=== PATIENT | female | born 1975 | race Caucasian/White ===

== ENCOUNTER → 2016-07-17 | Outpatient (CLI) | payer MEDICARE ==
[~2016-07-17] MED LIST: ACET-1101 PO; ALBU1AER9 INH; B-CO1CAP17 PO; BND25X PO; BUPR75TA20 PO; CLON0.5T3 PO; CLR10 PO; DIAZ-165 PO; DIPH25CA37 PO; ESCI1TAB10 PO; FLUT0.15; KLN5X PO; LEVO-14 PO; LINA1CAP PO; MAGN400T6 PO; OMEP20TA PO; ONDA8TAB6 PO; PANC6000 PO; PROM1SUP19 PR; QUET1TAB30 PO; TRAM-10 PO; TRAZ50TA35 PO; VNTHFA/IN INH
--- NOTE | 2016-07-17 13:47 | EXERCISE STRESS ECHO ---
*NOTICE TO RECEIVING CONSTITUTION PARTY AGENCY This information is strictly Confidential and protected under [place] law. [place] law prohibits you from making any further disclosure of this information unless further disclosure is expressly permitted by the written consent of the person to whom it pertains or is authorized by law. A general authorization for the release of medical or other information is not sufficient for this purpose. Hospital accepts no responsibility if the information is made available to any other person, INCLUDING THE PATIENT. Interpretation Summary * Name: JEAN MARIE FRANCO Study Date: 07/17/2016 09:45 AM BP: 130/88 mmHg * Patient Location: [facility] HR: 96 * : 1975 (M/d/yyyy) Gender: Female Height: 68 in * Age: 41 yrs Ethnicity: [place] Weight: 190 lb * Ordering Physician: Elisabeth Starks * Referring Physician: Elisabeth Starks PA-C * Performed By: Ludmila Fernández RCS * * Reason For Study: SOB, Chest Discomfort * BSA: 2.0 m2 * -- Conclusions -- * Stress Echo: * 1. Negative stress echo for ischemia at 96% MPHR. * 2. Negative exercise ECG for ischemia at 96% MPHR. * 3. No chest pain. * 4. Appropriate blood pressure response to exercise. * 5. No arrhythmia. * 6. Fair exercise tolerance. * ECHO: * 1. Normal left ventricular size and systolic function. EF 55-60%. No regional wall motion abnormalities. No left ventricular hypertrophy. Type 1 diastolic dysfunction. * 2. No significant valvular abnormalities visualized. Procedure Details * ECHOEX, CPT #[id number] * ECHO COLOR FLOW, CPT #[id number] * ECHO DOPPLER, CPT #[id number] Left Ventricle * The left ventricle is normal in size. * Echo images following exercise or personally visualized while acquiring the images. Unfortunately, the early images did not save in the system, however all wall segments appeared to augment appropriately with hyperdynamic LV systolic function. Images were then retaken and are available for review. * There is normal left ventricular wall thickness. * Ejection Fraction = 55-60%. * Left ventricular systolic function is normal. * Resting wall motion: Normal. Stress wall motion: Appropriate increase in Left ventricular systolic function and decrease in cavity size. No stress induced segmental wall motion abnormalities. * The left ventricular ejection fraction increases normally with stress. The left ventricular end-systolic cavity size reduces post-stress (normal response). The left ventricular wall motion with stress is normal. Right Ventricle * The right ventricle is normal in size and function. * The right ventricular systolic function is normal as assessed by tricuspid annular plane systolic excursion (TAPSE) (normal >1.5 cm). Atria * The left atrial size is normal. * Right atrial size is normal. * There is no evidence of atrial septal defect, but resolution does not allow assessment for a patent foramen ovale. Mitral Valve * The mitral valve is normal in structure and function. * There is no mitral valve stenosis. * There is trace mitral regurgitation. Tricuspid Valve * The tricuspid valve is not well visualized, but is grossly normal. * There is no tricuspid stenosis. * Significant tricuspid regurgitation is absent. Aortic Valve * The aortic valve is normal in structure and function. * The aortic valve is trileaflet. * No hemodynamically significant valvular aortic stenosis. * No aortic regurgitation is present. Pulmonic Valve * The pulmonary valve is inadequately visualized, but the Doppler data is adequate for interpretation. * There is no significant pulmonary regurgitation. Great Vessels * The aortic root is normal size. * Normal IVC size and inspiratory collapse. Pericardium * There is no pericardial effusion. Stress Parameters * NSR at 96 bpm. * Stress ECG: No ST changes. No arrhythmias. * No arrhythmia were noted with stress. * The stress portion of this study was personally supervised by the undersigned interpreting physician. * Rest heart rate was '96' BPM. * Rest blood pressure was '130/88' * Maximum heart rate achieved was 171 bpm. * Maximum heart rate was 96 % of maximum age-predicted heart rate. * Maximum blood pressure was '168/97' * Total exercise time was '6:56' * Maximum exercise MET level achieved was '8.4' METS * Maximum treadmill speed was '3.4' miles per hour. * Maximum treadmill elevation was '14'% grade. * Exercise was terminated due to 'fatigue after achieving target heart rate' * Normal blood pressure response to exercise. Left Ventricular Diastolic Function * Grade I diastolic dysfunction, (abnormal relaxation pattern). MMode 2D Measurements and Calculations IVSd 0.92 cm IVSs 1.2 cm LVIDd 4.9 cm LVIDs 3.1 cm LVPWd 1.0 cm LVPWs 1.2 cm IVS/LVPW 0.89 FS 37.9 % EDV(Teich) 113.6 ml ESV(Teich) 36.6 ml EF(Teich) 67.8 % EDV(cubed) 118.7 ml ESV(cubed) 28.5 ml EF(cubed) 76.0 % % IVS thick 29.2 % % LVPW thick 19.8 % LV mass(C)d 172.6 grams LV mass(C)dI 86.3 grams/m\S\2 LV mass(C)s 114.8 grams LV mass(C)sI 57.4 grams/m\S\2 CO(Teich) 6.6 l/min CI(Teich) 3.3 l/min/m\S\2 SV(Teich) 77.0 ml SI(Teich) 38.5 ml/m\S\2 CO(cubed) 7.8 l/min CI(cubed) 3.9 l/min/m\S\2 SV(cubed) 90.2 ml SI(cubed) 45.1 ml/m\S\2 Ao root diam 3.5 cm Ao root area 9.6 cm\S\2 ACS 1.9 cm LA dimension 3.4 cm LA/Ao 0.97 LVOT diam 2.2 cm LVOT area 3.6 cm\S\2 LVAd ap4 30.9 cm\S\2 LVLd ap4 8.1 cm EDV(MOD-sp4) 100.0 ml EDV(sp4-el) 77.5 ml LVAs ap4 17.3 cm\S\2 LVLs ap4 7.3 cm ESV(MOD-sp4) 34.0 ml ESV(sp4-el) 28.2 ml EF(MOD-sp4) 66.0 % EF(sp4-el) 63.5 % LVAd ap2 29.4 cm\S\2 LVLd ap2 8.8 cm EDV(MOD-sp2) 82.0 ml LVAs ap2 17.6 cm\S\2 LVLs ap2 7.3 cm ESV(MOD-sp2) 35.0 ml EF(MOD-sp2) 57.3 % CO(MOD-sp4) 5.7 l/min CI(MOD-sp4) 2.8 l/min/m\S\2 SV(MOD-sp4) 66.0 ml SI(MOD-sp4) 33.0 ml/m\S\2 CO(MOD-sp2) 4.0 l/min CI(MOD-sp2) 2.0 l/min/m\S\2 SV(MOD-sp2) 47.0 ml SI(MOD-sp2) 23.5 ml/m\S\2 CO(sp4-el) 4.2 l/min CI(sp4-el) 2.1 l/min/m\S\2 SV(sp4-el) 49.2 ml SI(sp4-el) 24.6 ml/m\S\2 Doppler Measurements and Calculations MV E max bran 55.9 cm/sec MV A max bran 70.6 cm/sec MV E/A 0.79 MV P1/2t max bran 64.3 cm/sec MV P1/2t 85.7 msec MVA(P1/2t) 2.6 cm\S\2 MV dec slope 219.6 cm/sec\S\2 MV dec time 0.17 sec Ao V2 max 112.5 cm/sec Ao max PG 5.1 mmHg Ao max PG (full) 2.9 mmHg MARIANELA(V,A) 2.4 cm\S\2 MARIANELA(V,D) 2.4 cm\S\2 LV V1 max PG 2.1 mmHg LV V1 max 73.0 cm/sec PA V2 max 77.3 cm/sec PA max PG 2.4 mmHg RAP systole 3.0 mmHg
== END | disposition home or self-care (01) ==
LOC: C.CPL 09:19
PROVIDERS: ATTEND Internal Medicine Pulmonary Disease
DX: R06.02 Shortness of breath (principal)

== ENCOUNTER 2017-03-05 12:34 | Emergency (ER) | payer MEDICARE ==
[~2017-03-05] VITALS: Ht 172.7 cm; Wt 90.4 kg
[~2017-03-05 12:34] MED LIST changes: -ACET-1101 PO; -BND25X PO; -CLON0.5T3 PO; -KLN5X PO; -PROM1SUP19 PR; -QUET1TAB30 PO; -VNTHFA/IN INH
[2017-03-05 12:50] VITALS: TEMP 36.9; Ht 172.7 cm; Wt 90.4 kg
[2017-03-05] MEDS ORDERED: IBUPROFEN 200 MG TAB PO STA (13:42)
[2017-03-05] MEDS ORDERED: ACETAMINOPHEN 500 MG TAB PO STA (13:42)
[2017-03-05] MEDS ORDERED: SODIUM CHLORIDE 0.9% 1000ML 1,000 ML IV STA ×3 (13:42→15:21)
[2017-03-05] MEDS ORDERED: MAGNESIUM SULFATE 1GM / D5W 1 GM BAG IV STA (13:42)
[2017-03-05] MEDS ORDERED: DEXAMETHASONE SOD INJ 10 MG/ML VIAL IV ONE (13:45)
[2017-03-05 14:29] LABS: VEN BLD GAS O2 SATURATION 64.9 %; VEN BLOOD GAS BASE EXCESS -1.6 mEq/L
--- NOTE | 2017-03-05 14:29 | EMERGENCY ROOM VISIT NOTE ---
History Report prepared by Esha: Moises Ventura Under the Supervision of: Dr. Dennis Branch M.D. First contact with patient: 12:55 Chief Complaint: SHORTNESS OF BREATH Stated Complaint: BREATHING DIFFICULTY Nursing Triage Summary: Pt arrives ALS from PCP/psych. Pt reports seen Saturday and dx with pnx. Finished Z-pack and was started on Ceftin. Pt reports using MDIs and nebs at home with no relief. Reports had a CT scan, bloodwork, CTX on Saturday. Lungs clear. Audible stridor/wheezing. Spo2 98% on R/A. PMH: PE, chronic pancreatitis, pnx, toxic thyroid disease, IBS, Diverticulitis History of Present Illness The patient is a 41 year old white female with a past medical history of PE, chronic pancreatitis, pneumonia, toxic thyroid disease, depression due to chronic pain, IBS, and diverticulitis who presents to the ED with a cc of a constant cough and shortness of breath for the past week which is worsened with deep inspiration and exertion. Positive abdominal pain and back pain from coughing. Negative recent travel, drug use, alcohol use, tobacco use, and blood thinner use. She was recently diagnosed with pneumonia, and she was given albuterol every four hours, z-pack, and Ceftin. Her kids currently have colds, and she is up to date with vaccinations. Source of History: patient Onset: a week ago Position: other (global) Quality: other (cough and shortness of breath) Timing: constant Modifying Factors (Relieving): exertion, other (deep inspiration) Associated Symptoms: + abdominal pain, + back pain Review of Systems See HPI for pertinent positives and negatives. A total of ten systems were reviewed and were otherwise negative. 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 Surgical Problems: (1) H/O section (2) H/O tubal ligation (3) History of cholecystectomy (4) History of ERCP (5) History of partial thyroidectomy (6) Hx of appendectomy (7) Hx of tonsillectomy Family History Diabetes mellitus FH: gallbladder disease FH: lung disease Hypertension Kidney disease or stones Social History Smoking Status: Never Smoker Alcohol Use: none Drug Use: none Marital Status: Housing Status: lives with family Occupation Status: disabled Current/Historical Medications Scheduled Albuterol Hfa (Ventolin Hfa), 2 PUFFS INH Q4H Escitalopram Oxalate (Lexapro), 20 MG PO DAILY Levocetirizine Dihydrochloride (Levocetirizine Dihydrochl), 1 TAB PO HS Magnesium Oxide (Mag-Ox), 400 MG PO DAILY Pancrelipase (Lipase-Protease- (Creon), 36,000 UNITS PO TIDM Quetiapine Fumarate (Seroquel), 25 MG PO HS Vitamin B Cmplx/Vitc/Folic Ac (Nephrocaps), 1 CAP PO DAILY Scheduled PRN Acetaminophen W/ Codeine (Tylenol W/Codeine #3), 1 TAB PO Q6H PRN for Pain Clonazepam (Clonazepam), 1-3 TAB PO DAILY PRN for Anxiety/Agitation Diphenhydramine HCl (Diphenhydramine HCl), 1 CAP PO HS PRN for Sleep Fluticasone Propionate (Nasal) (Flonase Allergy Relief), 2 SPRAYS NA DAILY PRN for allergies Loratadine (Claritin), 10 MG PO DAILY PRN for Allergies Ondansetron Hcl (Zofran), 8 MG PO TID PRN for Nausea Promethazine (Phenergan Suppository), 25 MG UT Q4H PRN for Nausea Tramadol (Ultram), 1 TAB PO TID PRN for Pain Allergies Coded Allergies: Banana (Verified Allergy, Severe, MOUTH SWELLS, 03/05/17) Dicyclomine (Verified Allergy, Severe, rash and respiratory distress, 03/05) Prochlorperazine (Verified Allergy, Mild, 03/05/17) Sumatriptan (Verified Allergy, Mild, HIVES, 03/05/17) Adhesives (Verified Allergy, Unknown, ALLERGY TO TRANSPARENT DRESSING TAPE , 03/05/17) Aspartame (Verified Allergy, Unknown, ALLERGY TO ARTIFICIAL SWEETNERS, 06/09) Penicillins (Verified Adverse Reaction, Mild, REDMANS SYNDROME, 03/05/17) PENICILLIN CAUSES REDMANS SYNDROME Physical Exam Vital Signs Date Time Temp Pulse Resp B/P (MAP) Pulse Ox O2 Delivery O2 Flow Rate FiO2 03/05/17 17:15 89 18 120/63 99 Room Air 03/05/17 14:48 108 20 155/98 98 Room Air 03/05/17 13:00 Room Air 03/05/17 12:53 Room Air 03/05/17 12:50 106 03/05/17 12:50 36.9 115 29 147/99 99 Room Air Physical Exam GENERAL: Awake, alert, well-appearing, NAD HENT: Normocephalic, atraumatic. Posterior oropharynx are clear. No swelling. EYES: Normal conjunctiva. Sclera non-icteric. NECK: No stridor over the anterior neck. Supple. No nuchal rigidity. FROM. RESPIRATORY: CTAB, no rhonchi, wheezing, crackles CARDIAC: Tachycardic but regular, no MRG ABDOMEN: Soft, NTND, BS+ MSK: No chest wall TTP, no LE edema. No asymmetry, calor, or calf pain NEURO: GCS 15, CN 2-12 intact, moves all 4s on command SKIN: No rash or jaundice noted. Medical Decision & Procedures ER Provider Diagnostic Interpretation: Radiology results as stated below per my review and radiologist interpretation: CHEST 2 VIEWS ROUTINE CLINICAL HISTORY: h/o PNA, SOB dyspnea COMPARISON STUDY: 11/13/2015 FINDINGS: The bones soft tissues and hemidiaphragms are normal. The cardiomediastinal silhouette is normal. The lungs are clear. The pulmonary vasculature is normal. IMPRESSION: Negative chest. The above report was generated using voice recognition software. It may contain grammatical, syntax or spelling errors. Electronically signed by: Jona Olson M.D. 03/05/2017 3:49 PM Dictated Date/Time: 03/05/2017 3:49 PM Laboratory Results 03/05/17 14:18 Red Blood Count 4.30, Mean Corpuscular Volume 78.4, Mean Corpuscular Hemoglobin 24.9, Mean Corpuscular Hemoglobin Concent 31.8, Mean Platelet Volume 8.2, Neutrophils (%) (Auto) 73.4, Lymphocytes (%) (Auto) 18.3, Monocytes (%) (Auto) 6.9, Eosinophils (%) (Auto) 0.5, Basophils (%) (Auto) 0.3, Neutrophils # (Auto) 7.95, Lymphocytes # (Auto) 1.98, Monocytes # (Auto) 0.75, Eosinophils # (Auto) 0.05, Basophils # (Auto) 0.03 03/05/17 14:18 Test 03/05/17 14:18 White Blood Count 10.83 K/uL (4.8-10.8) Red Blood Count 4.30 M/uL (4.2-5.4) Hemoglobin 10.7 g/dL (12.0-16.0) Hematocrit 33.7 % (37-47) Mean Corpuscular Volume 78.4 fL (80-100) Mean Corpuscular Hemoglobin 24.9 pg (25-34) Mean Corpuscular Hemoglobin Concent 31.8 g/dl (32-36) Platelet Count 391 K/uL (130-400) Mean Platelet Volume 8.2 fL (7.4-10.4) Neutrophils (%) (Auto) 73.4 % Lymphocytes (%) (Auto) 18.3 % Monocytes (%) (Auto) 6.9 % Eosinophils (%) (Auto) 0.5 % Basophils (%) (Auto) 0.3 % Neutrophils # (Auto) 7.95 K/uL (1.4-6.5) Lymphocytes # (Auto) 1.98 K/uL (1.2-3.4) Monocytes # (Auto) 0.75 K/uL (0.11-0.59) Eosinophils # (Auto) 0.05 K/uL (0-0.5) Basophils # (Auto) 0.03 K/uL (0-0.2) RDW Standard Deviation 47.2 fL (36.4-46.3) RDW Coefficient of Variation 16.5 % (11.5-14.5) Immature Granulocyte % (Auto) 0.6 % Immature Granulocyte # (Auto) 0.07 K/uL (0.00-0.02) Microcytosis PRESENT Ovalocytes 1+ Venous Blood pH 7.41 (7.36-7.41) Venous Blood Partial Pressure CO2 36 mmHg (38.0-50.0) Venous Blood Partial Pressure O2 35 mmHg Venous Blood HCO3 23 mmol/L Venous Blood Oxygen Saturation 64.9 % Venous Blood Base Excess -1.6 mEq/L Anion Gap 6.0 mmol/L (3-11) Est Creatinine Clear Calc Drug Dose 113.4 ml/min Estimated GFR () 112.1 Estimated GFR (Non- 96.8 BUN/Creatinine Ratio 21.1 (10-20) Calcium Level 8.8 mg/dl (8.5-10.1) Laboratory results reviewed by me Medications Administered Medications (Trade) Dose Ordered Sig/Rivas Route Start Time Stop Time Status Last Admin Dose Admin Sodium Chloride 1,000 ml @ 999 mls/hr Q1H1M STAT IV 03/05/17 13:42 03/05/17 14:42 DC 03/05/17 14:21 999 MLS/HR Ibuprofen (Advil Tab) 400 mg NOW STAT PO 03/05/17 13:42 03/05/17 13:52 DC 03/05/17 14:22 400 MG Acetaminophen (Tylenol Tab) 1,000 mg NOW STAT PO 03/05/17 13:42 03/05/17 13:52 DC 03/05/17 14:22 1,000 MG Sodium Chloride 1,000 ml @ 999 mls/hr Q1H1M STAT IV 03/05/17 13:42 03/05/17 14:42 DC 03/05/17 14:21 999 MLS/HR Magnesium Sulfate (Magnesium Sulfate) 1 gm NOW STAT IV 03/05/17 13:42 03/05/17 13:52 DC 03/05/17 14:20 1 GM Dexamethasone Sodium Phosphate (Decadron Inj) 10 mg NOW ONCE IV 03/05/17 13:45 03/05/17 13:52 DC 03/05/17 14:23 10 MG Lorazepam (Ativan Tab) 1 mg NOW STAT PO 03/05/17 14:40 03/05/17 14:41 DC 03/05/17 14:48 1 MG Sodium Chloride 1,000 ml @ 999 mls/hr Q1H1M STAT IV 03/05/17 15:21 03/05/17 16:21 DC 03/05/17 16:26 999 MLS/HR Metoclopramide HCl (Reglan Inj) 10 mg NOW STAT IV 03/05/17 15:21 03/05/17 15:23 DC 03/05/17 15:46 10 MG ECG Indication: SOB/dyspnea Rate (beats per minute): 95 Rhythm: sinus rhythm Findings: Q waves (in lead 3), other (normal intervals, no contiguous changes) ED Course 1255: The patient was evaluated in room B12. A complete history and physical exam was performed. 1618: I reevaluated the patient, and she was feeling a little better 1745: I reevaluated the patient. Discussed results and discharge instructions: She verbalized understanding and agreement. The patient is ready for discharge. Medical Decision The patient is a 41 year old white female with a past medical history of PE, chronic pancreatitis, pneumonia, toxic thyroid disease, depression due to chronic pain, IBS, and diverticulitis who presents to the ED with a cc of a constant cough for the past week which is worsened with deep inspiration and exertion. Positive abdominal pain and back pain from coughing. Negative recent travel, drug use, alcohol use, tobacco use, and blood thinner use. Differential diagnosis: Etiologies such as infections, reactive airway disease, pneumonia, pneumothorax , COPD, CHF, cardiac ischemia, pulmonary embolism, musculoskeletal, gastrointestinal, as well as others were entertained. Patient was seen and evaluated at the bedside. Patient was given supportive care and blood work urine chest x-ray and EKG. Patient's EKG was unremarkable. Patient had a negative chest film. Patient's blood work was fairly unremarkable. Patient was feeling improved tachycardia resolved. Patient's initial tachycardia even in the setting of prior history of PE less likely given the patient had been increasingly using albuterol in addition to being dehydrated some pain. Patient's tachycardia resolved. Patient was feeling improved and was able to tolerate by mouth. Patient did have a recent CT scan for which she says she was diagnosed with a pneumonia but no diagnosis of a PE. Given all this history the patient most likely has a PE and subsequently now dimer nor a CTA PE protocol was ordered. Patient was given strict follow-up, discharge, and return cautions. Patient agreed with plan of care patient was safely discharged home. Medication Reconcilliation Current Medication List: was personally reviewed by me Blood Pressure Screening Patient's blood pressure: Elevated blood pressure Blood pressure disposition: Referred to PCP Impression Primary Impression: Dehydration Additional Impression: Chronic cough Scribe Attestation The scribe's documentation has been prepared under my direction and personally reviewed by me in its entirety. I confirm that the note above accurately reflects all work, treatment, procedures, and medical decision making performed by me. Departure Information Dispostion Home / Self-Care Prescriptions Acetaminophen W/ Codeine (TYLENOL W/CODEINE #3) 1 Tab Tab 1 TAB PO Q6H Y for Pain for 7 Days, #12 TAB Prov: Dennis Branch M.D. 03/05/17 Referrals Annette Christensen M.D. (PCP) Patient Instructions Coughing Techniques, Deep Coughing, ED Upper Resp Infec No Abx Tx, [facility] Additional Instructions Please return to the emergency department if you have worsening or recurrent symptoms not amenable to at-home treatment. Please call for a follow-up appointment with her primary care physician. Please take your medications as prescribed. If you have other concerns and/or complaints please feel free to also call your primary care physician's office or return the ED for further evaluation, management, and treatment. You were found to have an elevated blood pressure today (>120 sytolic or >90 diastolic). Per medicare guidelines, you need to follow up with this blood pressure screening with your Primary Care Physician (PCP). For a new PCP call [phone]. You received narcotic or benzodiazepene medication while in the emergency room today. This is an addictive medication that may cause drowziness as well as constipation. Do not drive, operate heavy machinery, or drink alcohol under the influence of this medication. You may take 600 mg Ibuprofen every 6 hours as needed for pain with food for no more than 2 consecutive days. You may take tylenol 1000mg every 6 hours as needed for pain. You may take motrin and tylenol separately or at the same time. You may take mucinex for cough in addition to cepacol or tessalon perrle lozenges. You may try tylenol 3 as needed for pain as the codeine can help w/ cough. However, you must take into account the total amount of tylenol. You have been examined and treated today on an emergency basis only. This is not a substitute for, or an effort to provide, complete comprehensive medical care. It is impossible to recognize and treat all injuries or illnesses in a single emergency department visit. It is therefore important that you follow up closely with [facility] [address]. Call as soon as possible for an appointment. Thank you for your time and consideration. I look forward to speaking with you again soon. Please don't hesitate to call us if you have any questions. Problem Qualifiers
[2017-03-05] MEDS ORDERED: LORAZEPAM 1 MG TAB PO STA (14:40)
[2017-03-05 14:44] LABS: MEAN CORPUSCULAR HGB CONC 31.8 g/dl (32-36); MEAN PLATELET VOLUME 8.2 fL (7.4-10.4); PLATELET COUNT 391 K/uL (130-400)
[2017-03-05 14:57] LABS: BUN/CREATININE RATIO 21.1 (10-20); CALCIUM 8.8 mg/dl (8.5-10.1); CREATININE 0.76 mg/dl (0.60-1.20); POTASSIUM 3.6 mmol/L (3.5-5.1)
[2017-03-05] MEDS ORDERED: BND25X PO (15:06)
[2017-03-05] MEDS ORDERED: KLN5X PO (15:06)
[2017-03-05] MEDS ORDERED: VNTHFA/IN INH (15:06)
[2017-03-05] MEDS ORDERED: QUET1TAB30 PO (15:06)
[2017-03-05] MEDS ORDERED: PROM1SUP19 PR (15:06)
[2017-03-05] MEDS ORDERED: METOCLOPRAMIDE HCL INJ 5 MG/ML 2 ML VIAL IV STA (15:21)
[2017-03-05 15:22] LABS: BASO % 0.3 %; BASO ABS # 0.03 K/uL (0-0.2); COMPLETE YES; EOS % 0.5 %; HEMATOCRIT 33.7 % (37-47); IG% 0.6 %; LYMPH % 18.3 %; LYMPH ABS # 1.98 K/uL (1.2-3.4); MEAN CELL VOLUME 78.4 fL (80-100); MEAN CORPUSCULAR HEMOGLOBIN 24.9 pg (25-34); MICROCYTOSIS PRESENT; MONO % 6.9 %; NEUT % 73.4 %; OVALOCYTES 1+; WHITE BLOOD COUNT 10.83 K/uL (4.8-10.8)
--- NOTE | 2017-03-05 15:50 | DIAGNOSTIC IMAGING REPORT ---
CHEST 2 VIEWS ROUTINE CLINICAL HISTORY: h/o PNA, SOB dyspnea COMPARISON STUDY: 11/13/2015 FINDINGS: The bones soft tissues and hemidiaphragms are normal. The cardiomediastinal silhouette is normal. The lungs are clear. The pulmonary vasculature is normal. IMPRESSION: Negative chest. The above report was generated using voice recognition software. It may contain grammatical, syntax or spelling errors. Electronically signed by: Jona Olson M.D. 03/05/2017 3:49 PM Dictated Date/Time: 03/05/2017 3:49 PM
[2017-03-05] MEDS ORDERED: ACET-1101 PO (17:46)
[2017-03-05 18:20] VITALS: BP 143/95; PULSE 88; O2SAT 100
== END 2017-03-05 18:20 | disposition home or self-care (01) ==
LOC: EDBD 12:34 → C.EDB 12:38
DX: E86.0 Dehydration (principal); R05 Cough; Z86.711 Personal history of pulmonary embolism; K86.1 Other chronic pancreatitis; Z87.01 Personal history of pneumonia (recurrent); E07.9 Disorder of thyroid, unspecified; F32.9 Major depressive disorder, single episode, unspecified; K58.9 Irritable bowel syndrome, unspecified; K57.92 Diverticulitis of intestine, part unspecified, without perforation or abscess without bleeding; F41.9 Anxiety disorder, unspecified; Z83.3 Family history of diabetes mellitus; Z82.49 Family history of ischemic heart disease and other diseases of the circulatory system; Z83.6 Family history of other diseases of the respiratory system; Z83.79 Family history of other diseases of the digestive system; Z79.899 Other long term (current) drug therapy

== ENCOUNTER 2021-08-09 09:12 | Observation (INO) ==
--- NOTE | 2021-08-09 09:43 | Emergency Department Note ---
History of Present Illness General Chief complaint: Shortness of Breath/Dyspnea Stated complaint: SOB,UPPER BACK PAIN,WEAK Time Seen by Provider: 08/09/21 09:25 Source: patient Mode of arrival: ambulatory Limitations: no limitations History of Present Illness Provider complaint: Shortness of breath, upper back pain Onset (ago): week(s) 3 Maximum Pain Intensity: 7 Associated symptoms: + chest pain, + cough, + fever/chills, + headaches and + shortness of breath; no nausea/vomiting Treatments prior to arrival: other This is a 46-year-old female presents emergency department complaining of shortness of breath and upper back pain. Patient states she started with upper respiratory symptoms 3 weeks ago, contacted her PCP, and was started on cefdinir and a Medrol Dosepak. Patient states she does have a prior history of pneumonia as well as PE. She is not on chronic anticoagulation. Patient states her cough initially was productive of green sputum, however is now markedly improved with minimal clear sputum production. Patient states she is not having any further fevers, headaches, or congestion. Patient states she has been slowly developing increased pain between her shoulder blades in her upper back. Patient states this is similar to her prior PE. Patient has also previously had pneumonia that required bronchoscopy and lavage. Patient with complicated past medical history. Patient states she did contact her PCP to state that she was not yet improved and her steroids were increased. Patient states she is now almost at the end of her steroids and only has 1 further day left of her cefdinir and her PCP referred her to the emergency room to have a CT scan done. Patient states she has a port although it is not a PowerPort as she has had multiple prior surgeries requiring multiple central venous catheters and indwelling lines that have made her a difficult stick. Patient states she was previously vaccinated against Covid, and that her PCP did not have her Covid tested when she became acutely ill more recently. Pt seen during a time of high acuity and national emergency pandemic while wearing PPE. Home Medications Medication Instructions Recorded Confirmed Type albuterol sulfate 1.25 mg/3 mL 1.25 mg INHALATION Q4 PRN 04/27/21 08/09/21 History solution for nebulization albuterol sulfate 90 mcg/actuation 2 puff INHALATION QID PRN 04/27/21 08/09/21 History aerosol inhaler amitriptyline 50 mg tablet 50 mg PO HS 04/27/21 08/09/21 History benzonatate 100 mg capsule 200 mg PO TID PRN 04/27/21 08/09/21 History dicyclomine 20 mg tablet 20 mg PO QID PRN 04/27/21 08/09/21 History fexofenadine 180 mg tablet 180 mg PO DAILY PRN 04/27/21 08/09/21 History levothyroxine 88 mcg tablet 88 mcg PO DAILY 04/27/21 08/09/21 History (Synthroid) metoprolol tartrate 25 mg tablet 25 mg PO BID 04/27/21 08/09/21 History pantoprazole 40 mg tablet,delayed 40 mg PO DAILY 04/27/21 08/09/21 History release potassium chloride 10 mEq 10 meq PO DAILY 04/27/21 08/09/21 History tablet,extended release(part/cryst) prednisone 10 mg tablet 10 mg PO .TAPER UD 04/27/21 08/09/21 History quetiapine 100 mg tablet 300 mg PO HS 04/27/21 08/09/21 History sennosides 8.6 mg tablet (senna) 17.2 mg PO HS 04/27/21 08/09/21 History baclofen 10 mg tablet 10 mg PO TID PRN 08/09/21 08/09/21 History gabapentin 100 mg capsule 100 mg PO BID 08/09/21 08/09/21 History gabapentin 300 mg capsule 300 mg PO HS 08/09/21 08/09/21 History fjvnlq-eaanrvlp-oqilejc 3 cap PO TIDM 08/09/21 08/09/21 History 12,000-38,000-60,000 unit capsule,delayed rel (Creon) polyethylene glycol 3350 17 gram 17 g PO DAILY PRN 08/09/21 08/09/21 History oral powder packet (Miralax) hydrocodone 7.5 mg-acetaminophen 1 tab PO Q6 PRN 3 Days #5 tab 08/10/21 Rx 325 mg tablet nystatin 100,000 unit/mL oral 5 ml MUCOUS MEMBRANE QID 7 Days 08/10/21 Rx suspension #140 ml rivaroxaban 15 mg (42)-20 mg (9) See Rx Instructions .ROUTE 08/10/21 Rx tablets in a starter pack (Xarelto .COMPLEX #51 ea DVT-PE Treat 30d Start) rivaroxaban 20 mg tablet (Xarelto) 20 mg PO PM #60 tab 08/10/21 Rx Allergies Allergy/AdvReac Type Severity Reaction Status Date / Time banana Allergy Severe MOUTH Verified 08/09/21 11:10 SWELLS dicyclomine Allergy Severe rash and Verified 08/09/21 11:10 respiratory distress Penicillins Allergy Severe REDMANS Verified 08/09/21 11:10 SYNDROME aspartame Allergy Intermediate SYNCOPE Verified 08/09/21 11:10 sumatriptan Allergy Intermediate HIVES Verified 08/09/21 11:10 topiramate [From Topamax] Allergy Intermediate SUICIDAL Verified 08/09/21 11:10 THOUGHTS adhesive Allergy Mild SKIN Verified 08/09/21 11:10 SENSITIVE prochlorperazine Allergy Mild cardic Verified 08/09/21 11:10 dyskonesia Past Med/Surg History Medical History (Updated 08/10/21 @ 17:57 by Brianna Wasserman, ) Anemia Anxiety Borderline diabetes Chronic pancreatitis Depression Gout SINGLE EPISODE Hypokalemia Irritable bowel syndrome Medullary sponge kidney "incidental finding in 1999, no related issues" Migraine Mitral valve prolapse Isolated, only noted with PSVT Osteoarthritis Pulmonary embolism 3 YEARS AGO (HOSPITALIZED FOR PANCREATITIS/LOW ACTIVITY LEVEL). WAS ON COUMADIN X 6 MONTHS. Sphincter of Oddi dysfunction Tachycardia PSVT CAUSED 2/2 THYROID DISEASE (REASON FOR METOPROLOL) Toxic diffuse goiter with thyrotoxic crisis Most recent TSH 5.76 on 10/14. Longstanding hx of toxic nodules; s/p partial thyroidectomy x 2; pt states she continues to develop nodules and PCP is actively monitoring TSH and making medication adjustments as needed. Ulcerative colitis Surgical History H/O abdominal surgery LYSIS OF ADHESIONS H/O section X 2 H/O tubal ligation History of adenoidectomy History of bronchoscopy With bronchial lavage, done for recurrent pneumonia, 2016. History of cholecystectomy History of colonoscopy History of ERCP TOTAL OF 10 History of esophagogastroduodenoscopy (EGD) History of partial thyroidectomy x 2 History of tooth extraction History of vascular access device DUAL MEDIPORT INSERTION L AND R CHEST. Hx of appendectomy Hx of tonsillectomy Nausea and vomiting after administration of anesthetic agent Family History Grandmother (Paternal) Family history of diabetes mellitus Social History Smoking Status: Never smoker Second Hand Exposure: Yes ( A CHILD); Hx Alcohol Use: No Hx Substance Use: No Preferred Language: Armenian Communication Ability: Effective Visual Impairment: No Limitations Hearing Ability: Normal Pulley Maintainer Required: No Beliefs That Will Affect Care: None Current Living Situation: Family Feels Safe at Home: Yes Assistive Devices: None Review of Systems A total of 10 systems reviewed and were otherwise negative All systems reviewed & are unremarkable except as noted in HPI & below Physical Exam Vital Signs Vital Signs - 24 hr 08/09/21 09:19 08/09/21 09:34 08/09/21 09:36 Temperature 36.6 C Temperature Source Temporal Artery Scan Pulse Rate 95 H Pulse Rate [Apical] 97 H Respiratory Rate 18 22 Respiratory Effort / Characteristics Non-Labored Spontaneous Respiratory Depth Normal Blood Pressure 164/11 H Blood Pressure [Right Arm] 196/130 H Blood Pressure Mean 62 Blood Pressure Mean [Right Arm] 152 Pulse Oximetry 97 99 98 Oxygen Delivery Method Room Air Room Air Room Air Sepsis Recent Fever Within 48 Hours No Sepsis New/Unexplained Change in Mental Status N/A Sepsis Action Taken by Nursing No Action Required 08/09/21 12:00 Temperature Temperature Source Pulse Rate Pulse Rate [Apical] 77 Respiratory Rate 18 Respiratory Effort / Characteristics Non-Labored Spontaneous Respiratory Depth Normal Blood Pressure Blood Pressure [Right Arm] 146/102 H Blood Pressure Mean Blood Pressure Mean [Right Arm] 116 Pulse Oximetry 99 Oxygen Delivery Method Room Air Sepsis Recent Fever Within 48 Hours Sepsis New/Unexplained Change in Mental Status Sepsis Action Taken by Nursing GENERAL: alert, well appearing, well nourished, no distress, non-toxic EYE EXAM: normal conjunctiva, PERRL and EOM's grossly intact OROPHARYNX: no exudate, no erythema, lips, buccal mucosa, and tongue normal and mucous membranes are moist NECK: supple, no nuchal rigidity, no adenopathy, non-tender LUNGS: Clear to auscultation. Normal chest wall mechanics, no w/r/r HEART: no murmurs, S1 normal and S2 normal, port noted right anterior superior chest wall ABDOMEN: abdomen soft, non-tender, normo-active bowel sounds, no masses, no rebound or guarding. BACK: Back is symmetrical on inspection and there is no deformity, no midline tenderness, no CVA tenderness. SKIN: no rashes and no bruising UPPER EXTREMITIES: upper extremities are grossly normal. FROM, nml pulses b/l. LOWER EXTREMITIES: No pitting edema. FROM, nml pulses b/l. NEURO EXAM: Normal sensorium, cranial nerves II-XII grossly intact, normal speech, no gross weakness of arms, no gross weakness of legs. Gross sensation intact. Course Course 1402: Patient states she still having pain. 1540: Updated on additional findings. Administered Medications Discontinued Medications Hydrocodone Bitart/Acetaminophen (Hydrocodone/Acetaminophen 7.5/325mg Tab) 1 tab PO Q6 PRN PRN Reason: Pain Stop: 08/24/21 10:26 Last Admin: 08/10/21 16:41 Dose: 1 tab Documented by: [id number] Admin: 08/10/21 10:43 Dose: 1 tab Documented by: [id number] Amitriptyline HCl (Amitriptyline Hcl 50 Mg Tab) 50 mg PO HS JENNIFER Stop: 09/08/21 20:59 Last Admin: 08/09/21 23:11 Dose: 50 mg Documented by: [id number] Diazepam (Diazepam 5 Mg/Ml Inj 10ml Vial) 1 mg IV NOW STA Stop: 08/09/21 14:57 Last Admin: 08/09/21 16:42 Dose: Not Given Documented by: [id number] Diclofenac Sodium (Diclofenac Sod 1% Gel 100 Gm Tube) 2 gm EXT NOW STA Stop: 08/09/21 13:49 Last Admin: 08/09/21 14:04 Dose: 2 gm Documented by: [id number] Enoxaparin Sodium (Enoxaparin 100 Mg/1ml Syr) 90 mg SC Q12H JENNIFER Stop: 08/10/21 20:00 Last Admin: 08/10/21 08:54 Dose: 90 mg Documented by: [id number] Famotidine (Famotidine 20mg/5ml Iv Push) 20 mg IV ONE STA Stop: 08/09/21 13:49 Last Admin: 08/09/21 14:07 Dose: 20 mg Documented by: [id number] Fluconazole (Fluconazole 50 Mg Tab) 150 mg PO NOW ONE Stop: 08/10/21 11:31 Last Admin: 08/10/21 11:57 Dose: 150 mg Documented by: [id number] Gabapentin (Gabapentin 300 Mg Cap) 300 mg PO HS JENNIFER Stop: 09/08/21 20:59 Last Admin: 08/10/21 14:53 Dose: 300 mg Documented by: [id number] Admin: 08/09/21 23:11 Dose: 300 mg Documented by: [id number] Gabapentin (Gabapentin 100 Mg Cap) 100 mg PO 0900,1400 [facility] Stop: 09/09/21 08:59 Last Admin: 08/10/21 14:54 Dose: 100 mg Documented by: [id number] Admin: 08/10/21 08:19 Dose: 100 mg Documented by: [id number] Heparin Sodium (Porcine) (Heparin Sod (Porcine) 1000 Unit/Ml) 1 units IV NOW ONE Stop: 08/09/21 16:13 Last Admin: 08/09/21 16:52 Dose: 6,000 units Documented by: [id number] Cosigned by: [id number] Heparin Sodium/Dextrose (Heparin Iv Adult Wt-Based Standard With Bolus Protocol) 1 ea IV NOW STA; Protocol Stop: 08/09/21 15:58 Last Admin: 08/09/21 23:57 Dose: Not Given Documented by: [id number] Hydromorphone HCl (Hydromorphone Inj 1 Mg/Ml Syringe) 1 mg IV NOW STA Stop: 08/09/21 15:59 Last Admin: 08/09/21 16:51 Dose: 1 mg Documented by: [id number] Hydromorphone HCl (Hydromorphone Inj 0.5 Mg/0.5 Ml Syr) 0.5 mg IV NOW STA Stop: 08/09/21 21:31 Last Admin: 08/09/21 21:51 Dose: 0.5 mg Documented by: [id number] Sodium Chloride (Nss) 500 mls @ 125 mls/hr IV .Q4H JENNIFER Stop: 09/08/21 09:44 Last Admin: 08/09/21 19:29 Dose: Not Given Documented by: [id number] Infusion: 08/09/21 17:14 Dose: 0 mls/hr Documented by: [id number] Admin: 08/09/21 13:12 Dose: 125 mls/hr Documented by: [id number] Infusion: 08/09/21 13:12 Dose: 125 mls/hr Documented by: [id number] Admin: 08/09/21 10:55 Dose: 125 mls/hr Documented by: [id number] Magnesium Sulfate/Dextrose (Magnesium Sulfate / D5w) 1 gm in 100 mls @ 100 mls/hr IV NOW STA Stop: 08/09/21 12:35 Last Infusion: 08/09/21 13:03 Dose: 0 mls/hr Documented by: [id number] Admin: 08/09/21 12:03 Dose: 100 mls/hr Documented by: [id number] Acetaminophen (Ofirmev) 1,000 mg in 100 mls @ 400 mls/hr IV NOW STA Stop: 08/09/21 12:25 Last Infusion: 08/09/21 13:27 Dose: 0 mls/hr Documented by: [id number] Admin: 08/09/21 13:12 Dose: 400 mls/hr Documented by: [id number] Heparin Sodium/Dextrose (Heparin Sodium/Dextrose) 25,000 units in 500 mls @ 22 mls/hr IV .[id number] [facility]; Protocol Stop: 09/08/21 16:14 Last Titration: 08/10/21 08:59 Dose: 0 units/hr, 0 mls/hr Documented by: [id number] Cosigned by: [id number] Titration: 08/10/21 06:54 Dose: 1,100 units/hr, 22 mls/hr Documented by: [id number] Cosigned by: [id number] Titration: 08/10/21 01:00 Dose: 1,100 units/hr, 22 mls/hr Documented by: [id number] Cosigned by: [id number] Titration: 08/09/21 23:57 Dose: 0 units/hr, 0 mls/hr Documented by: [id number] Cosigned by: [id number] Admin: 08/09/21 16:53 Dose: 1,350 units/hr, 27 mls/hr Documented by: [id number] Cosigned by: [id number] Ioversol (Optiray 320 125ml) 119 ml IV ONCE ONE Stop: 08/09/21 11:53 Last Admin: 08/09/21 11:52 Dose: 119 ml Documented by: [id number] Ketorolac Tromethamine (Ketorolac Tromethamine 15 Mg/Ml Vial) 10 mg IV NOW ONE Stop: 08/09/21 13:49 Last Admin: 08/09/21 14:11 Dose: 10 mg Documented by: [id number] Levothyroxine Sodium (Levothyroxine Sodium 88 Mcg Tablet) 88 mcg PO DAILYBB JENNIFER Stop: 09/09/21 06:29 Last Admin: 08/10/21 05:56 Dose: 88 mcg Documented by: [id number] Metoprolol Tartrate (Metoprolol Tartrate 25 Mg Tab) 25 mg PO BID JENNIFER Stop: 09/08/21 20:59 Last Admin: 08/10/21 08:20 Dose: 25 mg Documented by: [id number] Admin: 08/09/21 23:11 Dose: 25 mg Documented by: [id number] Miscellaneous (Creon: Order Awaiting Action) 1 ea N/A QS JENNIFER Stop: 09/09/21 00:00 Last Admin: 08/10/21 14:54 Dose: Not Given Documented by: [id number] Admin: 08/10/21 08:21 Dose: Not Given Documented by: [id number] Admin: 08/10/21 00:24 Dose: Not Given Documented by: [id number] Morphine Sulfate (Morphine Sulfate 4 Mg/Ml 1 Ml Carp\\Vial) 4 mg IV NOW STA Stop: 08/09/21 13:49 Last Admin: 08/09/21 14:03 Dose: 4 mg Documented by: [id number] Nystatin (Nystatin Susp 500,000 U/5 Ml Udc) 5 ml PO QID [facility] Stop: 08/20/21 12:59 Last Admin: 08/10/21 16:42 Dose: 5 ml Documented by: [id number] Admin: 08/10/21 11:58 Dose: 5 ml Documented by: [id number] Pantoprazole Sodium (Pantoprazole 40 Mg Tab) 40 mg PO DAILY JENNIFER Stop: 09/09/21 08:59 Last Admin: 08/10/21 08:20 Dose: 40 mg Documented by: [id number] Potassium Chloride (Potassium Chloride Crtab 20 Meq Tabcr) 40 meq PO NOW STA Stop: 08/09/21 11:36 Last Admin: 08/09/21 12:03 Dose: 40 meq Documented by: [id number] Potassium Chloride (Potassium Chloride Crtab 20 Meq Tabcr) 40 meq PO NOW STA Stop: 08/09/21 18:16 Last Admin: 08/09/21 19:14 Dose: 40 meq Documented by: [id number] Potassium Chloride (Potassium Chloride 10 Meq Tabcr) 10 meq PO DAILY JENNIFER Stop: 09/09/21 08:59 Last Admin: 08/10/21 08:20 Dose: 10 meq Documented by: [id number] Quetiapine Fumarate (Quetiapine Fumarate 300 Mg Tablet) 300 mg PO HS JENNIFER Stop: 09/08/21 20:59 Last Admin: 08/09/21 23:11 Dose: 300 mg Documented by: [id number] Sennosides (Senna 8.6 Mg Tab) 17.2 mg PO HS JENNIFER Stop: 09/08/21 20:59 Last Admin: 08/09/21 23:11 Dose: 17.2 mg Documented by: [id number] Tramadol HCl (Tramadol Hcl 50 Mg Tablet) 50 mg PO Q6H PRN PRN Reason: Moderate Pain Stop: 09/08/21 19:20 Last Admin: 08/10/21 05:24 Dose: 50 mg Documented by: [id number] Admin: 08/09/21 23:09 Dose: 50 mg Documented by: [id number] Critical Care Time Critical Care Time: Yes Total Critical Care Time: 48 Critical care of 48 min performed to assess and manage high likelihood of life- threatening PE, involving labs and imaging performed with assessment to evaluate back pain diagnosis with frequent reassessment. This time includes bedside time, treatment discussions with patient/family/consultants, documentation time and excludes procedure time. Medical Decision Making Differential Diagnosis Differential diagnoses includes but is not limited to pneumonia, bronchitis, COPD/Asthma exacerbation, pneumothorax, pulmonary embolism, congestive heart failure, acute coronary syndrome Medical Records Attestation: I reviewed the patient's medical records. Home Medications Current Medication List: was personally reviewed by me Laboratory Data Attestation: I reviewed the patient's lab results. Result diagrams: 08/10/21 07:08 08/10/21 07:08 Lab Results 08/09/21 08/09/21 08/09/21 Range/Units 09:54 10:12 10:12 WBC 14.26 H (4.8-10.8) K/uL RBC 4.16 L (4.2-5.4) M/uL Hgb 11.8 L (12.0-16.0) g/dL Hct 36.8 L (37-47) % MCV 88.5 (80-100) fL MCH 28.4 (25-34) pg MCHC 32.1 (32-36) g/dL RDW Std Deviation 48.5 H (36.4-46.3) fL RDW Coeff of Дмитрий 15.0 H (11.5-14.5) % Plt Count 380 (130-400) K/uL MPV 8.6 (7.4-10.4) fL Immature Gran % (Auto) 1.0 % Neut % (Auto) 80.7 % Lymph % (Auto) 11.9 % Dane % (Auto) 6.2 % Eos % (Auto) 0.1 % Baso % (Auto) 0.1 % Neut # (Auto) 11.51 H (1.4-6.5) K/uL Lymph # (Auto) 1.70 (1.2-3.4) K/uL Dane # (Auto) 0.88 H (0.11-0.59) K/uL Eos # (Auto) 0.02 (0-0.5) K/uL Baso # (Auto) 0.01 (0-0.2) K/uL Immature Gran # (Auto) 0.14 H (0.00-0.02) K/uL Sodium 140 (136-145) mmol/L Potassium 3.0 L (3.5-5.1) mmol/L Chloride 102 (98-107) mmol/L Carbon Dioxide 31 (21-32) mmol/L Anion Gap 7 (3-11) BUN 12 (6-23) mg/dl Creatinine 0.80 (0.6-1.2) mg/dl Est Cr Clr Drug Dosing 103.3 ml/min Est GFR ( Amer) 101.8 ml/min Est GFR (Non-Af Amer) 87.8 ml/min BUN/Creatinine Ratio 15.0 (10-20) Glucose 99 (70-99(Fasting)) mg/dl Calcium 8.3 L (8.5-10.1) mg/dl Magnesium 1.6 L (1.7-2.4) mg/dl Total Bilirubin 0.5 (0.2-1.0) mg/dl AST 11 L (13-39) U/L ALT 14 (7-52) U/L Alkaline Phosphatase 74 (34-104) U/L Troponin I < 0.03 (0-0.04) ng/ml Total Protein 6.7 (6.0-8.3) gm/dl Albumin 3.9 (3.4-5.0) gm/dl Globulin 2.8 (2.5-4.0) gm/dl Albumin/Globulin Ratio 1.4 (0.9-2) TSH (0.300-4.500) uIu/ml SARS-CoV-2 (PCR) NEGATIVE (Negative) Influenza Type A (PCR) Negative (Neg) Influenza Type B (PCR) Negative (Neg) RSV (RT-PCR) Negative (Neg) 08/09/21 Range/Units 10:12 WBC (4.8-10.8) K/uL RBC (4.2-5.4) M/uL Hgb (12.0-16.0) g/dL Hct (37-47) % MCV (80-100) fL MCH (25-34) pg MCHC (32-36) g/dL RDW Std Deviation (36.4-46.3) fL RDW Coeff of Дмитрий (11.5-14.5) % Plt Count (130-400) K/uL MPV (7.4-10.4) fL Immature Gran % (Auto) % Neut % (Auto) % Lymph % (Auto) % Dane % (Auto) % Eos % (Auto) % Baso % (Auto) % Neut # (Auto) (1.4-6.5) K/uL Lymph # (Auto) (1.2-3.4) K/uL Dane # (Auto) (0.11-0.59) K/uL Eos # (Auto) (0-0.5) K/uL Baso # (Auto) (0-0.2) K/uL Immature Gran # (Auto) (0.00-0.02) K/uL Sodium (136-145) mmol/L Potassium (3.5-5.1) mmol/L Chloride (98-107) mmol/L Carbon Dioxide (21-32) mmol/L Anion Gap (3-11) BUN (6-23) mg/dl Creatinine (0.6-1.2) mg/dl Est Cr Clr Drug Dosing ml/min Est GFR ( Amer) ml/min Est GFR (Non-Af Amer) ml/min BUN/Creatinine Ratio (10-20) Glucose (70-99(Fasting)) mg/dl Calcium (8.5-10.1) mg/dl Magnesium (1.7-2.4) mg/dl Total Bilirubin (0.2-1.0) mg/dl AST (13-39) U/L ALT (7-52) U/L Alkaline Phosphatase (34-104) U/L Troponin I (0-0.04) ng/ml Total Protein (6.0-8.3) gm/dl Albumin (3.4-5.0) gm/dl Globulin (2.5-4.0) gm/dl Albumin/Globulin Ratio (0.9-2) TSH 1.476 (0.300-4.500) uIu/ml SARS-CoV-2 (PCR) (Negative) Influenza Type A (PCR) (Neg) Influenza Type B (PCR) (Neg) RSV (RT-PCR) (Neg) Imaging Data Radiologist's Impression: Chest CTA 08/09/21 09:39 CT angio chest PE protocol CT DOSE: 536.65 mGy.cm HISTORY: 46 years-old Female with PE. Acute shortness of breath TECHNIQUE: Multiple CTA images of the chest were obtained after the intravenous administration of 119 ml Optiray. Coronal and sagittal MIPS were obtained from the axial data set and were submitted for review. All measurements were obtained according to NASCET criteria. A dose lowering technique was utilized adhering to the principles of ALARA. COMPARISON: CTA chest 04/27/2021, 08/17/2015. FINDINGS: CTA: There is adequate opacification of the pulmonary arteries to the level of the subsegmental branches without convincing evidence of acute pulmonary embolism. Normal thoracic aorta. Moderate cardiomegaly. Right IJ port catheter distal tip terminates within the superior cavoatrial junction. CT CHEST: Thyroidectomy. No adenopathy. Trace pleural effusions. Mild dependent bibasilar atelectasis. There is no pneumothorax or overt pulmonary edema. 5 mm subpleural solid nodule of the left lower lobe on image 56 is unchanged from 04/27/2021 study. Stable 4 mm solid nodule of the basal left lower lobe on image 33 series 4. Central airways are patent. Cholecystectomy with mild pneumobilia. No acute process of the imaged upper abdomen. Unremarkable soft tissues. Avascular necrosis of the humeral heads. No acute fracture. IMPRESSION: 1. Cardiomegaly without pulmonary emboli. 2. Trace pleural effusions. 3. Prior cholecystectomy with unchanged pneumobilia. 4. Avascular necrosis of the humeral heads. ACT 112: Negative or not required by law. The above report was generated using voice recognition software. It may contain grammatical, syntax or spelling errors. Electronically signed by: Danny Salazar M.D. 08/09/2021 12:[address] 08/09/21 14:56 CT SCAN OF THE THORACIC SPINE WITH IV CONTRAST CLINICAL HISTORY: Thoracic back pain. COMPARISON STUDY: Chest CT scans dated 08/09/2021 and 04/27/2021. TECHNIQUE: CT scan of the thoracic spine is performed from the lower thoracic spine to the lower cervical spine following the IV administration of 119 cc of Optiray 320. Images for both examinations are reviewed in the axial, sagittal, and coronal planes. IV contrast was administered without complication. A dose lowering technique was utilized adhering to the principles of ALARA. FINDINGS: The skeletal structures are well mineralized. There is no evidence of fracture or malalignment involving the thoracic spine. Vertebral body height and alignment is maintained from T1 through T11. T12 was not imaged. The transverse and spinous processes are intact. No lytic or blastic lesion is seen. There is mild multilevel degenerative disc space narrowing. There is no CT evidence of large disc herniation or high-grade central canal stenosis. Tiny anterior osteophytes are seen throughout. The visualized posterior ribs appear intact. The paraspinous soft tissues are normal in appearance. There are trace pleural effusions. The visualized lung parenchyma is otherwise clear. The thyroid gland is surgically absent. Segmental and subsegmental pulmonary emboli are seen within branches of the right upper lobe pulmonary artery. IMPRESSION: 1. No acute bony abnormality is seen involving the thoracic spine. Note that T12 was not imaged. 2. Segmental and subsegmental pulmonary emboli are seen within branches of the r ight upper lobe pulmonary artery. 3. Trace pleural effusions. ACT 112: Negative or not required by law. Electronically signed by: Lucian Vela M.D. 08/09/2021 3:38 PM ECG Data Attestation: I personally reviewed and interpreted this ECG as follows: Indication: + SOB/dyspnea Rate (beats per minute): 72 Rhythm: + normal sinus ECG Intervals/blocks: + Normal QRS and + Normal QT ECG [place]: + Normal ECG ST segments: + Normal ST segments ECG Findings: + Q waves MDM Narrative This is a 46-year-old female presents due to concern for persistent shortness of breath and accompanying upper back pain. Patient states she was referred by her PCP after additional outpatient treatment was unsuccessful. Patient was hemodynamically stable, labs drawn and sent, due to prior history of PE, she was sent for CT angiography of the chest. This was originally read by radiology as negative for PE, no other acute pulmonary pathology noted. Patient with persistent thoracic back pain, requiring multiple doses of pain medication. I asked radiology to pull thoracic spine recons on the patient and in those images they found a PE. Patient received several doses of IV pain medication. She was started on IV heparin. Case was discussed with hospitalist for additional evaluation and management. No evidence of right heart strain, no troponin elevation. Patient was tachycardic, however not hypoxic. An order was placed for continuous cardiac monitoring. The monitor shows a rate of _102_ with _sinus tachycardia_ rhythm. Impression & Plan Dyspnea, Pulmonary embolism, Back pain, Hypokalemia, Hypomagnesemia Discharge Plan Visit Data Chief Complaint: Shortness of Breath/Dyspnea Stated Complaint: SOB,UPPER BACK PAIN,WEAK ED Provider: Brianna Wasserman Discharge Problem: Dyspnea, Pulmonary embolism, Back pain, Hypokalemia, Hypomagnesemia Patient Disposition: Admitted As Inpatient Discharge Instructions Interventions: ED Discharge Assessment Last Done: 08/09/21 19:22 Discharge Problem: Dyspnea Qualifiers: Dyspnea type: shortness of breath Qualified Code(s): R06.02 - Shortness of breath Pulmonary embolism Qualifiers: Pulmonary embolism type: unspecified Chronicity: acute Acute cor pulmonale presence: without acute cor pulmonale Qualified Code(s): I26.99 - Other pulmonary embolism without acute cor pulmonale Back pain Qualifiers: Back pain location: thoracic back pain Chronicity: acute Back pain laterality: midline Qualified Code(s): M54.6 - Pain in thoracic spine
[2021-08-09 10:26] LABS: Basophils # (auto) 0.01 K/uL (0-0.2); Basophils % (auto) 0.1 %; Eosinophils # (auto) 0.02 K/uL (0-0.5); Eosinophils % (auto) 0.1 %; Hematocrit (blood only) 36.8 % (37-47); Hemoglobin 11.8 g/dL (12.0-16.0); Immature Granulocytes # (auto) 0.14 K/uL (0.00-0.02); Lymphocytes % (auto) 11.9 %; Mean Corpuscular Hemoglobin 28.4 pg (25-34); Mean Corpuscular Hgb Conc 32.1 g/dL (32-36); Mean Corpuscular Volume 88.5 fL (80-100); Mean Platelet Volume 8.6 fL (7.4-10.4); Monocytes # (auto) 0.88 K/uL (0.11-0.59); Monocytes % (auto) 6.2 %; Neutrophils # (auto) 11.51 K/uL (1.4-6.5); Neutrophils % (auto) 80.7 %; Platelet Count 380 K/uL (130-400); RDW Standard Deviation 48.5 fL (36.4-46.3); Red Blood Count 4.16 M/uL (4.2-5.4); White Blood Count 14.26 K/uL (4.8-10.8)
[2021-08-09 10:44] LABS: Influenza A virus by PCR Negative (Neg); Influenza B virus by PCR Negative (Neg); RSV by PCR Negative (Neg); SARS CoV2 RNA(COVID-19) InHosp NEGATIVE (Negative)
[2021-08-09 10:47] LABS: Alanine Aminotransferase 14 U/L (7-52); Albumin Globulin Ratio 1.4 (0.9-2); Albumin Level 3.9 gm/dl (3.4-5.0); Alkaline Phosphatase 74 U/L (34-104); Anion Gap 7 (3-11); Aspartate Aminotransferase 11 U/L (13-39); Bilirubin,Total 0.5 mg/dl (0.2-1.0); Blood Urea Nitrogen 12 mg/dl (6-23); Calcium 8.3 mg/dl (8.5-10.1); Carbon Dioxide 31 mmol/L (21-32); Chloride 102 mmol/L (98-107); Creatinine Clr Calc Pharmacy 103.3 ml/min; Est GFR (African American) 101.8 ml/min; Est GFR (Non-African American) 87.8 ml/min; Globulin 2.8 gm/dl (2.5-4.0); Glucose 99 mg/dl (70-99(Fasting)); Magnesium 1.6 mg/dl (1.7-2.4); Sodium 140 mmol/L (136-145); Total Protein 6.7 gm/dl (6.0-8.3)
[2021-08-09 10:48] LABS: Troponin I < 0.03 ng/ml (0-0.04)
[2021-08-09] MEDS: SODIUM CHLORIDE 0.9% 500 ML IV SCH ×3 (10:55→19:29)
[2021-08-09] MEDS ORDERED: POTASSIUM CHLORIDE CRTAB 20 MEQ TABCR PO STA ×2 (11:35→18:15)
[2021-08-09] MEDS ORDERED: MAGNESIUM SULFATE / D5W 1 GM/100 ML BAG IV STA (11:36)
[2021-08-09] MEDS ORDERED: OPTIRAY 320 125ml IV ONE (11:52)
[2021-08-09] MEDS ORDERED: ACETAMINOPHEN 1,000 MG/100 ML VIAL IV STA (12:11)
--- NOTE | 2021-08-09 12:23 | CT Scan Report ---
CT angio chest PE protocol CT DOSE: 536.65 mGy.cm HISTORY: 46 years-old Female with PE. Acute shortness of breath TECHNIQUE: Multiple CTA images of the chest were obtained after the intravenous administration of 119 ml Optiray. Coronal and sagittal MIPS were obtained from the axial data set and were submitted for review. All measurements were obtained according to NASCET criteria. A dose lowering technique was u tilized adhering to the principles of ALARA. COMPARISON: CTA chest 04/27/2021, 08/17/2015. FINDINGS: CTA: There is adequate opacification of the pulmonary arteries to the level of the subsegmental branches w ithout convincing evidence of acute pulmonary embolism. Normal thoracic aorta. Moderate cardiomegaly. Right IJ port catheter distal tip terminates within the superior cavoatrial junction. CT CHEST: Thyroidectomy. No adenopathy. Trace pleural effusions. Mild dependent bibasilar atelectasis. There is no pneumothorax or overt pulmonary edema. 5 mm subpleural solid nodule of the left lower lobe on cydney ge 56 is unchanged from 04/27/2021 study. Stable 4 mm solid nodule of the basal left lower lobe on cydney ge 33 series 4. Central airways are patent. Cholecystectomy with mild pneumobilia. No acute process of the imaged upper abdomen. Unremarkable sof t tissues. Avascular necrosis of the humeral heads. No acute fracture. IMPRESSION: 1. Cardiomegaly without pulmonary emboli. 2. Trace pleural effusions. 3. Prior cholecystectomy with unchanged pneumobilia. 4. Avascular necrosis of the humeral heads. ACT 112: Negative or not required by law. The above report was generated using voice recognition software. It may contain grammatical, syntax o r spelling errors. Electronically signed by: Danny Salazar M.D. 08/09/2021 12:21 PM
[2021-08-09] MEDS ORDERED: FAMOTIDINE 20MG/5ML IV PUSH IV STA (13:48)
[2021-08-09] MEDS ORDERED: KETOROLAC TROMETHAMINE 15 MG/ML VIAL IV ONE (13:48)
[2021-08-09] MEDS ORDERED: DICLOFENAC SOD 1% GEL 100 GM TUBE EXT STA (13:48)
[2021-08-09] MEDS ORDERED: MoRPHine SULFATE 4 MG/ML 1 ML CARP\\VIAL IV STA (13:48)
--- NOTE | 2021-08-09 15:16 | Electrocardiogram Report ---
Test Reason : Blood Pressure : / mmHG Vent. Rate : 072 BPM Atrial Rate : 072 BPM P-R Int : 148 ms QRS Dur : 088 ms QT Int : 392 ms P-R-T Axes : 036 015 046 degrees QTc Int : 429 ms Normal sinus rhythm Cannot rule out Anterior infarct (cited on or before 09-AUG-2021) Abnormal ECG When compared with ECG of 27-APR-2021 14:41, Vent. rate has decreased BY 36 BPM T wave inversion no longer evident in Inferior leads Confirmed by Neftaly Colunga ([id number]) on 08/09/2021 3:16:13 PM Referred By: Annette Christensen Confirmed By:Neftaly Colunga
--- NOTE | 2021-08-09 15:39 | CT Scan Report ---
CT SCAN OF THE THORACIC SPINE WITH IV CONTRAST CLINICAL HISTORY: Thoracic back pain. COMPARISON STUDY: Chest CT scans dated 08/09/2021 and 04/27/2021. TECHNIQUE: CT scan of the thoracic spine is performed from the lower thoracic spine to the lower cerv ical spine following the IV administration of 119 cc of Optiray 320. Images for both examinations are reviewed in the axial, sagittal, and coronal planes. IV contrast was administered without complicati on. A dose lowering technique was utilized adhering to the principles of ALARA. FINDINGS: The skeletal structures are well mineralized. There is no evidence of fracture or malalignm ent involving the thoracic spine. Vertebral body height and alignment is maintained from T1 through T 11. T12 was not imaged. The transverse and spinous processes are intact. No lytic or blastic lesion i s seen. There is mild multilevel degenerative disc space narrowing. There is no CT evidence of large disc herniation or high-grade central canal stenosis. Tiny anterior osteophytes are seen throughout. The visualized posterior ribs appear intact. The paraspinous soft tissues are normal in appearance. T here are trace pleural effusions. The visualized lung parenchyma is otherwise clear. The thyroid glan d is surgically absent. Segmental and subsegmental pulmonary emboli are seen within branches of the r ight upper lobe pulmonary artery. IMPRESSION: 1. No acute bony abnormality is seen involving the thoracic spine. Note that T12 was not imaged. 2. Segmental and subsegmental pulmonary emboli are seen within branches of the right upper lobe pulmo nary artery. 3. Trace pleural effusions. ACT 112: Negative or not required by law. Electronically signed by: Lucian Vela M.D. 08/09/2021 3:38 PM
[2021-08-09] MEDS ORDERED: Heparin IV Adult Wt-Based Standard WITH Bolus Protocol IV STA (15:57)
[2021-08-09] MEDS ORDERED: HYDROmorphone INJ 1 MG/ML SYRINGE IV STA (15:58)
[2021-08-09] MEDS ORDERED: HEPARIN SOD (PORCINE) 1000 UNIT/ML IV ONE (16:12)
[2021-08-09] MEDS ORDERED: HEPARIN SODIUM/DEXTROSE 25,000 UNITS/500 ML BAG IV SCH (16:15)
[2021-08-09] MEDS ORDERED: Heparin IV Adult Wt-Based Standard WITH Bolus Protocol IV SCH (16:15)
[2021-08-09] MEDS ORDERED: BACLOFEN 10 MG TAB PO PRN (19:21)
[2021-08-09] MEDS ORDERED: DICYCLOMINE HCL 20 MG TAB PO PRN (19:21)
[2021-08-09] MEDS ORDERED: ONDANSETRON INJ 2 MG/ML 2 ML VIAL IV PRN (19:21)
[2021-08-09] MEDS ORDERED: POLYETHYLENE (MIRALAX) 17 GM PACK PO PRN (19:21)
[2021-08-09] MEDS ORDERED: ACETAMINOPHEN 325 MG TAB PO PRN (19:21)
[2021-08-09] MEDS ORDERED: LABETALOL HCL IV 5 MG/ML 20ML IV PRN (19:27)
--- NOTE | 2021-08-09 19:50 | History & Physical Report ---
Date of Service August 09, 2021 Assessment & Plan (1) Pulmonary embolism: Plan: Patient is 46-year-old female with PMH of PE several years ago thought to be provoked from hospitalization treated with Coumadin for reported 6 weeks with reported negative coagulopathy studies presented to ER with complaint of increased SOB x 4 days. 2-3 weeks ago with URI symptoms. Increased SOB past 4 days with pleuritic CP and back pain. In ER HR: 95, no hypoxia CTA Chest: small segmental and subsegmental right upper lobe pulmonary emboli In ER IV heparin started Continue heparin Tramadol prn pain Currently not requiring oxygen (2) HTN (hypertension): Plan: In ER noted to be hypertensive 173/114 Suspected situational Monitor (3) Hypokalemia: Plan: Acute on chronic hypokalemia K: 3.0 In ER given 40 M EQ KCl p.o. replace and monitor Hypomagnesia Ma.6 In ER given magnesium sulfate (4) Chronic pancreatitis: Plan: History of biliary dyskinesia s/p stent placement, chronic pancreatitis No current abdominal pain Continue home meds (5) History of toxic multinodular goiter: Plan: S/p thyroidectomy Continue Synthroid DVT Prophylaxis On IV heparin for PE present upon admission Full Code as per discussion with pt Follows with Dr Christensen for routine care Pt was seen and care coordinated with Dr Orona. See addendum Admission and Anticipated Discharge Date Admission Date: August 09, 2021 History of Present Illness Chief Complaint: SOB Primary Care Provider: Annette Christensen MD Patient is 46-year-old female with PMH of PE several years ago thought to be provoked from hospitalization, biliary dyskinesia s/p stent placement, chronic pancreatitis, IBS, toxic goiter s/p thyroidectomy, depression, anxiety, MVP with PSVT presented to ER with complaint of shortness of breath. Patient reports 2 to 3 weeks ago started with nasal congestion, rhinorrhea, sinus pressure, cough. She had telemedicine visit with PCPs office 07/31/2021 and was prescribed ce fdinir, Medrol Dosepak. 08/03/2021 was changed to prednisone. Patient reports started to feel little better with improvement of nasal congestion, cough no longer productive. She reports she has not been doing much around the house secondary to not feeling well past couple weeks. Reports past 4 days with increased shortness of breath, having chest pain with inspiration and pain between shoulder blades. Was recommended to have CT scan done outpatient however has not had completed yet. Patient reports history venous insufficiency and has been having sclerotherapy to left lower extremity, last being 4 weeks ago. Patient denies any noted swelling or discomfort. Denies fever/chills, diaphoresis, N/V/D/C, LOMAX, dizziness, syncope, vision changes, neck pain, orthopnea, palpitations, hemoptysis, sore throat, choking, otalgia, abdominal pain, paresthesias, weakness, extremity weakness, rashes, urinary symptoms. Denies other recent surgical procedures, recent travel. Denies family history of clotting disorder. In ER found to have small segmental and subsegmental right upper lobe pulmonary emboli on CTA chest. IV heparin was started in ER. Allergies Allergy/AdvReac Type Severity Reaction Status Date / Time banana Allergy Severe MOUTH Verified 08/09/21 11:10 SWELLS dicyclomine Allergy Severe rash and Verified 08/09/21 11:10 respiratory distress Penicillins Allergy Severe REDMANS Verified 08/09/21 11:10 SYNDROME aspartame Allergy Intermediate SYNCOPE Verified 08/09/21 11:10 sumatriptan Allergy Intermediate HIVES Verified 08/09/21 11:10 topiramate [From Topamax] Allergy Intermediate SUICIDAL Verified 08/09/21 11:10 THOUGHTS adhesive Allergy Mild SKIN Verified 08/09/21 11:10 SENSITIVE prochlorperazine Allergy Mild cardic Verified 08/09/21 11:10 dyskonesia Home Medications Medication Instructions Recorded Confirmed Type albuterol sulfate 1.25 mg/3 mL 1.25 mg INHALATION Q4 PRN 04/27/21 08/09/21 History solution for nebulization albuterol sulfate 90 mcg/actuation 2 puff INHALATION QID PRN 04/27/21 08/09/21 History aerosol inhaler amitriptyline 50 mg tablet 50 mg PO HS 04/27/21 08/09/21 History benzonatate 100 mg capsule 200 mg PO TID PRN 04/27/21 08/09/21 History dicyclomine 20 mg tablet 20 mg PO QID PRN 04/27/21 08/09/21 History fexofenadine 180 mg tablet 180 mg PO DAILY PRN 04/27/21 08/09/21 History levothyroxine 88 mcg tablet 88 mcg PO DAILY 04/27/21 08/09/21 History (Synthroid) metoprolol tartrate 25 mg tablet 25 mg PO BID 04/27/21 08/09/21 History pantoprazole 40 mg tablet,delayed 40 mg PO DAILY 04/27/21 08/09/21 History release potassium chloride 10 mEq 10 meq PO DAILY 04/27/21 08/09/21 History tablet,extended release(part/cryst) prednisone 10 mg tablet 10 mg PO .TAPER UD 04/27/21 08/09/21 History quetiapine 100 mg tablet 300 mg PO HS 04/27/21 08/09/21 History sennosides 8.6 mg tablet (senna) 17.2 mg PO HS 04/27/21 08/09/21 History baclofen 10 mg tablet 10 mg PO TID PRN 08/09/21 08/09/21 History gabapentin 100 mg capsule 100 mg PO BID 08/09/21 08/09/21 History gabapentin 300 mg capsule 300 mg PO HS 08/09/21 08/09/21 History ylijln-wwqnvvbs-syxdpre 3 cap PO TIDM 08/09/21 08/09/21 History 12,000-38,000-60,000 unit capsule,delayed rel (Creon) polyethylene glycol 3350 17 gram 17 g PO DAILY PRN 08/09/21 08/09/21 History oral powder packet (Miralax) Past Med/Surg History Medical History (Updated 08/09/21 @ 20:20 by Karmen Landa PA-C) Anemia Anxiety Borderline diabetes Chronic pancreatitis Depression Gout SINGLE EPISODE Hypokalemia Irritable bowel syndrome Medullary sponge kidney "incidental finding in 1999, no related issues" Migraine Mitral valve prolapse Isolated, only noted with PSVT Osteoarthritis Pulmonary embolism 3 YEARS AGO (HOSPITALIZED FOR PANCREATITIS/LOW ACTIVITY LEVEL). WAS ON COUMADIN X 6 MONTHS. Sphincter of Oddi dysfunction Tachycardia PSVT CAUSED 2/2 THYROID DISEASE (REASON FOR METOPROLOL) Toxic diffuse goiter with thyrotoxic crisis Most recent TSH 5.76 on 10/14. Longstanding hx of toxic nodules; s/p partial thyroidectomy x 2; pt states she continues to develop nodules and PCP is actively monitoring TSH and making medication adjustments as needed. Ulcerative colitis Surgical History H/O abdominal surgery LYSIS OF ADHESIONS H/O section X 2 H/O tubal ligation History of adenoidectomy History of bronchoscopy With bronchial lavage, done for recurrent pneumonia, 2016. History of cholecystectomy History of colonoscopy History of ERCP TOTAL OF 10 History of esophagogastroduodenoscopy (EGD) History of partial thyroidectomy x 2 History of tooth extraction History of vascular access device DUAL MEDIPORT INSERTION L AND R CHEST. Hx of appendectomy Hx of tonsillectomy Nausea and vomiting after administration of anesthetic agent Family History Grandmother (Paternal) Family history of diabetes mellitus Social History Smoking Status: Never smoker Second Hand Exposure: Yes ( A CHILD); Hx Alcohol Use: No Hx Substance Use: No Preferred Language: Lithuanian Communication Ability: Effective Visual Impairment: No Limitations Hearing Ability: Normal Stained Glass Joiner Required: No Beliefs That Will Affect Care: None Current Living Situation: Family Other Information That Helps Us Care for You: Yes (anxiety/depression due to sickness) Feels Safe at Home: Yes Safety Concerns: Feels Safe At This Time Assistive Devices: Glasses Review of Systems Review of Systems: All systems reviewed & are unremarkable except as noted in HPI & below Physical Exam Physical Exam: General: does not appear in acute distress, WDWN Head: normocephalic, atraumatic Eyes: PERRL, EOM's intact, conjunctiva non-injected, anicteric ENT: normal inspection external ears, nose, mucous membranes moist Neck: supple, trachea midline Lungs: clear, no respiratory distress, no wheezing/rhonchi/rales CV: RRR, no murmur, no pretibial edema Abd: normal BS, soft, non-tender Ext: no cyanosis, no calf tenderness Neuro: A&O x 3, no focal deficits noted, normal affect Skin: warm, dry Results & Data Results & Data ([facility]) Vital Signs (Past 12 Hours) Vital Signs Temp Pulse Pulse Resp BP BP Pulse Ox 08/09/21 15:45 95 H 24 97 08/09/21 15:30 90 25 H 173/114 H 97 08/09/21 15:15 77 17 96 02/16/22 15:00 84 22 163/120 H 97 08/09/21 12:00 77 18 146/102 H 99 08/09/21 09:36 97 H 22 196/130 H 98 08/09/21 09:34 99 08/09/21 09:19 36.6 C 95 H 18 164/11 H 97 Laboratory Results Short CBC 08/09/21 Range/Units 10:12 WBC 14.26 H (4.8-10.8) K/uL Hgb 11.8 L (12.0-16.0) g/dL Hct 36.8 L (37-47) % Plt Count 380 (130-400) K/uL BMP 08/09/21 10:12 Sodium 140 Potassium 3.0 L Chloride 102 Carbon Dioxide 31 BUN 12 Creatinine 0.80 Glucose 99 Calcium 8.3 L Cardiac Enzymes 08/09/21 Range/Units 10:12 Troponin I < 0.03 (0-0.04) ng/ml Liver Function 08/09/21 Range/Units 10:12 Total Bilirubin 0.5 (0.2-1.0) mg/dl AST 11 L (13-39) U/L ALT 14 (7-52) U/L Alkaline Phosphatase 74 (34-104) U/L Albumin 3.9 (3.4-5.0) gm/dl Diagnostic Findings Chest CTA 08/09/21 09:39 CT angio chest PE protocol CT DOSE: 536.65 mGy.cm HISTORY: 46 years-old Female with PE. Acute shortness of breath TECHNIQUE: Multiple CTA images of the chest were obtained after the intravenous administration of 119 ml Optiray. Coronal and sagittal MIPS were obtained from the axial data set and were submitted for review. All measurements were obtained according to NASCET criteria. A dose lowering technique was utilized adhering to the principles of ALARA. COMPARISON: CTA chest 04/27/2021, 08/17/2015. FINDINGS: CTA: There is adequate opacification of the pulmonary arteries to the level of the subsegmental branches without convincing evidence of acute pulmonary embolism. Normal thoracic aorta. Moderate cardiomegaly. Right IJ port catheter distal tip terminates within the superior cavoatrial junction. CT CHEST: Thyroidectomy. No adenopathy. Trace pleural effusions. Mild dependent bibasilar atelectasis. There is no pneumothorax or overt pulmonary edema. 5 mm subpleural solid nodule of the left lower lobe on image 56 is unchanged from 04/27/2021 study. Stable 4 mm solid nodule of the basal left lower lobe on image 33 series 4. Central airways are patent. Cholecystectomy with mild pneumobilia. No acute process of the imaged upper abdomen. Unremarkable soft tissues. Avascular necrosis of the humeral heads. No acute fracture. IMPRESSION: 1. Cardiomegaly without pulmonary emboli. 2. Trace pleural effusions. 3. Prior cholecystectomy with unchanged pneumobilia. 4. Avascular necrosis of the humeral heads. ACT 112: Negative or not required by law. The above report was generated using voice recognition software. It may contain grammatical, syntax or spelling errors. Electronically signed by: Danny Salazar M.D. 08/09/2021 12:[address] 08/09/21 14:56 CT SCAN OF THE THORACIC SPINE WITH IV CONTRAST CLINICAL HISTORY: Thoracic back pain. COMPARISON STUDY: Chest CT scans dated 08/09/2021 and 04/27/2021. TECHNIQUE: CT scan of the thoracic spine is performed from the lower thoracic spine to the lower cervical spine following the IV administration of 119 cc of Optiray 320. Images for both examinations are reviewed in the axial, sagittal, and coronal planes. IV contrast was administered without complication. A dose lowering technique was utilized adhering to the principles of ALARA. FINDINGS: The skeletal structures are well mineralized. There is no evidence of fracture or malalignment involving the thoracic spine. Vertebral body height and alignment is maintained from T1 through T11. T12 was not imaged. The transverse and spinous processes are intact. No lytic or blastic lesion is seen. There is mild multilevel degenerative disc space narrowing. There is no CT evidence of large disc herniation or high-grade central canal stenosis. Tiny anterior osteophytes are seen throughout. The visualized posterior ribs appear intact. The paraspinous soft tissues are normal in appearance. There are trace pleural effusions. The visualized lung parenchyma is otherwise clear. The thyroid gland is surgically absent. Segmental and subsegmental pulmonary emboli are seen within branches of the right upper lobe pulmonary artery. IMPRESSION: 1. No acute bony abnormality is seen involving the thoracic spine. Note that T12 was not imaged. 2. Segmental and subsegmental pulmonary emboli are seen within branches of the right upper lobe pulmonary artery. 3. Trace pleural effusions. ACT 112: Negative or not required by law. Electronically signed by: Lucian Vela M.D. 08/09/2021 3:38 PM Code Status & VTE Plan VTE Prophylaxis Plan VTE Prophylaxis will be ordered: Yes Supervising Physician Co-Signing Physician Notes Patient is a 46-year-old female with history of ulcerative colitis, chronic pancreatitis, intracoronary dysfunction, mood disorder and other medical problems presents with history of flulike symptoms since 2 to 3 weeks duration. She recently completed a course of Medrol Dosepak, cefdinir. Patient noticed developing worsening shortness of breath associated with pleuritic chest pain since 4 days duration. Please review HPI for complete details of presentation. Blood work suggestive of leukocytosis 14 K, hypokalemia 3.0, hypomagnesemia 1.6. Imaging studies suggestive of small segmental and subsegmental right upper lobe pulmonary emboli. She is saturating well on room air while in ED. On exam patient is moderately built and nourished, no apparent distress, normocephalic atraumatic, EOMI, normal breath sounds, clear to auscultation, S1-S2, no murmur, no pedal edema, abdomen soft, nontender, normal bowel sounds, blood, awake, oriented, grossly nonfocal deficits. Patient is admitted for management of acute PE. Agree with starting on IV heparin. Supplemental oxygen as needed. Pain control as needed. Needs hypercoagulable work-up as outpatient. Check resting echo. Hypertensive urgency. Patient is not on any antihypertensives at home. Start on labetalol as needed. Replace magnesium, potassium supplements. I personally reviewed the record. Patient is interviewed and examined at bedside. Patient's care is coordinated with Karmen Landa PA-C. Please refer to the documentation above for details of patient's presentation and for discussion of other issues.
[2021-08-09] MEDS ORDERED: QUEtiapine FUMARATE 300 MG TABLET PO SCH (21:00)
[2021-08-09] MEDS ORDERED: AMITRIPTYLINE HCL 50 MG TAB PO SCH (21:00)
[2021-08-09] MEDS ORDERED: SENNA 8.6 MG TAB PO SCH (21:00)
[2021-08-09] MEDS ORDERED: HYDROmorphone INJ 0.5 MG/0.5 ML SYR IV STA (21:30)
[2021-08-09] MEDS ORDERED: ALBUTEROL 0.5% NEB SOLN 2.5 MG/0.5 ML VIAL INH PRN (21:57)
[2021-08-09] MEDS: traMADol HCL 50 MG TABLET PO PRN (23:09)
[2021-08-09] MEDS: METOPROLOL TARTRATE 25 MG TAB PO SCH (23:11)
[2021-08-09] MEDS: GABAPENTIN 300 MG CAP PO SCH (23:11)
[2021-08-09 23:57] LABS: Partial Thromboplastin Time 105.1 Seconds (21.0-31.0)
[2021-08-10] MEDS: traMADol HCL 50 MG TABLET PO PRN (05:24)
[2021-08-10] MEDS ORDERED: LEVOTHYROXINE SODIUM 88 MCG TABLET PO SCH (06:30)
[2021-08-10 07:35] LABS: Hematocrit (blood only) 35.1 % (37-47); Hemoglobin 11.1 g/dL (12.0-16.0); Mean Corpuscular Hemoglobin 28.1 pg (25-34); Mean Corpuscular Hgb Conc 31.6 g/dL (32-36); Mean Corpuscular Volume 88.9 fL (80-100); Mean Platelet Volume 8.5 fL (7.4-10.4); Platelet Count 336 K/uL (130-400); RDW Coefficient of Variation 15.3 % (11.5-14.5); RDW Standard Deviation 49.7 fL (36.4-46.3); Red Blood Count 3.95 M/uL (4.2-5.4); White Blood Count 13.46 K/uL (4.8-10.8)
[2021-08-10 08:00] LABS: BUN Creatinine Ratio 17.7 (10-20); Calcium 8.2 mg/dl (8.5-10.1); Creatinine Clr Calc Pharmacy 104.8 ml/min; Est GFR (African American) 103.3 ml/min; Est GFR (Non-African American) 89.1 ml/min; Potassium 3.7 mmol/L (3.5-5.1)
[2021-08-10 08:09] LABS: Partial Thromboplastin Ratio 2.4
[2021-08-10 08:13] LABS: Partial Thromboplastin Time 62.2 Seconds (21.0-31.0)
[2021-08-10] MEDS: GABAPENTIN 100 MG CAP PO SCH ×2 (08:19→14:54)
[2021-08-10] MEDS: METOPROLOL TARTRATE 25 MG TAB PO SCH (08:20)
[2021-08-10] MEDS ORDERED: ENOXAPARIN 100 MG/1ML SYR SC SCH (08:30)
[2021-08-10] MEDS ORDERED: PANTOprazole 40 MG TAB PO SCH (09:00)
[2021-08-10] MEDS ORDERED: POTASSIUM CHLORIDE 10 MEQ TABCR PO SCH (09:00)
--- NOTE | 2021-08-10 09:55 | Ultrasound Report ---
US venous doppler LE BI CLINICAL HISTORY: Bilateral leg swelling COMPARISON: None available at the time of this dictation. TECHNIQUE: Bilateral lower extremity real-time compression venous ultrasound with Color Doppler imagi ng. Utilizing real-time ultrasonic imaging multiple real time high-resolution ultrasonic images with comp ression and noncompression maneuvers of the deep venous system in addition to color doppler imaging w ere performed from the common femoral vein through the proximal calf veins. FINDINGS: Currently there is normal compressibility of the deep venous system from the common femoral vein thro ugh the proximal calf veins. No current evidence of acute thrombosis is identified. Impression: No evidence of deep venous thrombus. ACT 112: Negative or not required by law. Electronically signed by: Noah Forbes M.D. 08/10/2021 9:53 AM
[2021-08-10] MEDS: HYDROCODONE/ACETAMINOPHEN 7.5/325MG TAB PO PRN ×2 (10:43→16:41)
[2021-08-10] MEDS ORDERED: FLUCONAZOLE 50 MG TAB PO ONE (11:30)
[2021-08-10] MEDS: NYSTATIN SUSP 500,000 U/5 ML UDC PO SCH ×2 (11:58→16:42)
--- NOTE | 2021-08-10 12:34 | Discharge Summary ---
Date of Service August 10, 2021 Admission HPI Per Admitting Provider Patient is 46-year-old female with PMH of PE several years ago thought to be provoked from hospitalization, biliary dyskinesia s/p stent placement, chronic pancreatitis, IBS, toxic goiter s/p thyroidectomy, depression, anxiety, MVP with PSVT presented to ER with complaint of shortness of breath. Patient reports 2 to 3 weeks ago started with nasal congestion, rhinorrhea, sinus pressure, cough. She had telemedicine visit with PCPs office 07/31/2021 and was prescribed cefdinir, Medrol Dosepak. 08/03/2021 was changed to prednisone. Patient reports started to feel little better with improvement of nasal congestion, cough no longer productive. She reports she has not been doing much around the house secondary to not feeling well past couple weeks. Reports past 4 days with increased shortness of breath, having chest pain with inspiration and pain between shoulder blades. Was recommended to have CT scan done outpatient however has not had completed yet. Patient reports history venous insufficiency and has been having sclerotherapy to left lower extremity, last being 4 weeks ago. Patient denies any noted swelling or discomfort. Denies fever/chills, diaphoresis, N/V/D/C, LOMAX, dizziness, syncope, vision changes, neck pain, orthopnea, palpitations, hemoptysis, sore throat, choking, otalgia, abdominal pain, paresthesias, weakness, extremity weakness, rashes, urinary symptoms. Denies other recent surgical procedures, recent travel. Denies family history of clotting disorder. In ER found to have small segmental and subsegmental right upper lobe pulmonary emboli on CTA chest. IV heparin was started in ER. Principal Diagnosis Subsegmental PE Discharge Exam Patient appears well, no acute distress, breathing comfortably on room air. No wheezing/rhonchi/rales/tripoding Regular rate and rhythm Discharge Data Allergies Allergy/AdvReac Type Severity Reaction Status Date / Time banana Allergy Severe MOUTH Verified 08/09/21 11:10 SWELLS dicyclomine Allergy Severe rash and Verified 08/09/21 11:10 respiratory distress Penicillins Allergy Severe REDMANS Verified 08/09/21 11:10 SYNDROME aspartame Allergy Intermediate SYNCOPE Verified 08/09/21 11:10 sumatriptan Allergy Intermediate HIVES Verified 08/09/21 11:10 topiramate [From Topamax] Allergy Intermediate SUICIDAL Verified 08/09/21 11:10 THOUGHTS adhesive Allergy Mild SKIN Verified 08/09/21 11:10 SENSITIVE prochlorperazine Allergy Mild cardic Verified 08/09/21 11:10 dyskonesia Consultations 08/09/21 16:31 ED Decision to Admit Stat Ordered Studies 08/09/21 09:39 CT angio chest PE protocol Stat 08/09/21 14:56 CT thoracic spine w con Stat 08/10/21 08:08 US venous doppler LE BI Routine Hospital Course Ms Edith Long is a 46 year old female with history of prior provoked PE (finished 3 month course of coumadin, reported negative hypercoagulable workup afterwards), IBS, UC, chronic pancreatitis, multinodular thyroid goiter presented to the ER 08/09 with upper chest pain located in between her shoulder blade worsened with inspiration. Patient has been suffering from rhinitis and URI for past 3 weeks and was recently started on prednisone. Here, she underwent CTA chest which revealed small subsegmental and segmental pulmonary emboli in the right upper lobe. A follow up lower extremity ultrasound was negative for DVT. She was placed on heparin drip then switched to therapeutic lovenox for ease of dosing. She tolerated anticoagulation well. Prior to discharge, a prescription for Xarelto was sent to her pharmacy and was verified that it was covered by her insurance. Her outpatient pharmacy will order the Xarelto and it will be available the following day. She received 1 day supply of Xarelto from our inpatient pharmacy here to take home until then. Patient was instructed to follow up with her PCP to discuss whether she needs to remain on lifelong anticoagulation. She reports ongoing upper back/pleuritic chest pain and was discharged home on Romeo 7/325mg PO Q 6PRN x 3 days (sig 7 tablets total). She was cautioned to avoid driving/operating machinery/swimming/taking baths while taking narcotics as it may make her drowsy. Total Time Total Time Spent Total Time Spent (In Minutes): 37 Discharge Plan Discharge Items Patient Disposition: Home - Self-Care Reason For Visit: PE Discharge Diagnosis: subsegmental PE oral thrush Activity: As commented below Lifting: Gradually increase as tolerated Bathing Comment: avoid baths while taking narcotics (shower is ok) Exercise/Sports: As tolerated Driving/Machine Use: Resume 3 days after discharge Weightbearing: Full weightbearing Non-emergency contact: Primary Care Provider Call non-emergency contact if: you have any medication questions and your symptoms worsen Follow-up/Referrals: Annette Christensen MD [Primary Care Provider] - (Date & Time 08/16/2021 11:00 AM Provider Annette Christensen MD Department General Internal Medicine [facility] ) Diet: Heart Healthy Addtl Attending Provider Instructions: You were diagnosed with small blood clot in your lung You will be discharged on Xarelto, prescription for 3 months. Please follow up with your family doctor to decide whether the course needs to be extended Also, for your thrush, you were started on nystastin swish and spit. You received 1 dose of Diflucan in the hospital While taking narcotics, avoid driving/operating machinery/swimming/taking baths as it may make you drowsy Pending Studies at Discharge: No Stand-Alone Forms: My [facility] Matter and Form, Smoking Cessation Medications and DC Order Prescriptions: New nystatin 100,000 unit/mL Suspension 5 ml mucous membrane QID 7 Days Qty: 140 RF: 0 hydrocodone-acetaminophen 7.5-325 mg Tablet 1 tab PO Q6 PRN (Reason: pain) 3 Days Qty: 5 RF: 0 Xarelto DVT-PE Treat 30d Start 15 mg (42)- 20 mg (9) tablets,dose pack See Rx Instructions .ROUTE .COMPLEX Qty: 51 RF: 0 Xarelto 20 mg tablet 20 mg PO PM Qty: 60 RF: 0 Continued prednisone 10 mg tablet 10 mg PO .TAPER UD RF: 0 albuterol sulfate 1.25 mg/3 mL solution for nebulization 1.25 mg inhalation Q4 PRN (Reason: Shortness Of Breath Or Wheezing) RF: 0 quetiapine 100 mg tablet 300 mg PO HS RF: 0 amitriptyline 50 mg tablet 50 mg PO HS RF: 0 sennosides [senna] 8.6 mg Tablet 17.2 mg PO HS RF: 0 fexofenadine 180 mg Tablet 180 mg PO DAILY PRN (Reason: Allergy Symptoms) RF: 0 levothyroxine [Synthroid] 88 mcg tablet 88 mcg PO DAILY RF: 0 dicyclomine 20 mg tablet 20 mg PO QID PRN (Reason: ABD PAIN) RF: 0 benzonatate 100 mg capsule 200 mg PO TID PRN (Reason: Cough) RF: 0 pantoprazole 40 mg tablet,delayed release (DR/EC) 40 mg PO DAILY RF: 0 albuterol sulfate 90 mcg/actuation HFA aerosol inhaler 2 puff INHALATION QID PRN (Reason: Wheezing) RF: 0 potassium chloride 10 mEq tablet,ER particles/crystals 10 meq PO DAILY RF: 0 metoprolol tartrate 25 mg tablet 25 mg PO BID RF: 0 baclofen 10 mg tablet 10 mg PO TID PRN (Reason: Pain) RF: 0 Creon 12,000-38,000 -60,000 unit Capsule,Delayed Release(Dr/Ec) 3 cap PO TIDM RF: 0 polyethylene glycol 3350 [Miralax] 17 gram Powder In Packet 17 g PO DAILY PRN (Reason: Constipation) RF: 0 gabapentin 300 mg capsule 300 mg PO HS RF: 0 gabapentin 100 mg capsule 100 mg PO BID RF: 0 Discharge Orders: Discharge Order (Routine); Ordered 08/10/21 Ordered By: Baldemar Lindsey/Other Patient Handouts: Pulmonary Embolism Admission Data Admit Date/Time: 08/09/21 17:24 Attending Provider: Baldemar Shirley Admit Provider: Trey Orona Primary Care Provider: Annette Christensen Other Providers: Trey Orona
--- NOTE | 2021-08-10 12:58 | XCELERA ---
[id number]
[2021-08-10] MEDS: GABAPENTIN 300 MG CAP PO SCH (14:53)
[2021-08-10] MEDS ORDERED: RIVAROXABAN 15 MG TAB PO SCH ×2 (21:00)
== END 2021-08-10 17:28 | disposition home or self-care (01) ==
LOC: ED 09:12 → INTOOBSV 17:24 → EDINP 17:24 → SUATTDRO 17:24 → EDINP 19:22 → 2W 20:19
DX: M19.90 Unspecified osteoarthritis, unspecified site; I34.1 Nonrheumatic mitral (valve) prolapse; Z79.890 Hormone replacement therapy; Z88.0 Allergy status to penicillin; Z86.39 Personal history of other endocrine, nutritional and metabolic disease; I10 Essential (primary) hypertension; K86.1 Other chronic pancreatitis; Z79.51 Long term (current) use of inhaled steroids; Z79.899 Other long term (current) drug therapy; Z88.8 Allergy status to other drugs, medicaments and biological substances; Z91.048 Other nonmedicinal substance allergy status; I26.99 Other pulmonary embolism without acute cor pulmonale; Z20.822 Contact with and (suspected) exposure to COVID-19; E87.6 Hypokalemia; Z91.018 Allergy to other foods